=== PATIENT | male | born 1960 | race Caucasian/White ===

== ENCOUNTER 2019-03-01 09:40 | Day surgery (SDC) | payer OTHER ==
[2019-03-01] MEDS ORDERED: fentaNYL 100 MCG/2 ML SDV IVPUSH ONE (09:50)
--- NOTE | 2019-03-01 09:53 | EDM.PDOC ---
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 A makeshift tourniquet is applied above the wound. Clothing is removed, tourniquet removed, and inspection reveals a full thickness laceration involving the quadriceps muscles with some clots and debris visible, and no active bleeding. There are pulses in the lower leg, and CMS is intact. General surgery was called to consult and manage. - Related Data Allergies Allergy/AdvReac Type Severity Reaction Status Date / Time No Known Allergies Allergy Verified 03/01/19 10:23 Home Meds: Home Meds NK [No Known Home Meds] 03/01/19 [History] Past Medical History Respiratory History: Reports: Other (See Below) (pneumonia 14 years ago, hospitalized in [place], [place]) Review of Systems - Review of Systems Review Of Systems: See Below Constitutional: Reports: No Symptoms Eyes: Reports: No Symptoms Ears: Reports: No Symptoms Nose: Reports: No Symptoms Mouth/Throat: Reports: No Symptoms Respiratory: Reports: No Symptoms Cardiovascular: Reports: No Symptoms GI/Abdominal: Reports: No Symptoms Genitourinary: Reports: No Symptoms Musculoskeletal: Reports: Leg Pain (L anterior thigh) Skin: Reports: Wound (deep wound L anteriomedial thigh) Neurological: Reports: No Symptoms Psychiatric: Reports: No Symptoms ED EXAM, GENERAL - Physical Exam Exam: See Below Exam Limited By: No Limitations General Appearance: Alert, WD/WN, Mild Distress Eye Exam: Bilateral Eye: EOMI, Normal Inspection, PERRL Ears: Normal External Exam Nose: Normal Inspection Throat/Mouth: Normal Lips, Normal Voice, Other (numerous teeth missing or caried ) Head: Atraumatic, Normocephalic Neck: Normal Inspection, Supple Respiratory/Chest: No Respiratory Distress, Lungs Clear, Normal Breath Sounds, No Accessory Muscle Use, Chest Non-Tender Cardiovascular: Normal Peripheral Pulses, Regular Rate, Rhythm, No Murmur Peripheral Pulses: 4+: Femoral (L), Popliteal (L), Posterior Tibial (L), Dorsalis Pedis (L) GI/Abdominal: Normal Bowel Sounds, Soft, Non-Tender, No Organomegaly, No Distention, No Mass (Male) Exam: Deferred Rectal (Males) Exam: Deferred Back Exam: Normal Inspection Extremities: Leg Pain (L anterior thigh) Neurological: Alert, Oriented, CN II-XII Intact, Normal Cognition, Normal Reflexes, No Motor/Sensory Deficits Psychiatric: Normal Affect, Normal Mood Skin Exam: Warm, Dry, Wound/Incision (L anterior thigh 20 cm and full thickness involving quadriceps mm) Lymphatic: No Adenopathy Course - Vital Signs Text/Narrative:: Surgical consult with Dr. Hurt, and he was taken to surgery for debridement and repair. Last Recorded V/S: Last Vital Signs Temp 36.3 C 03/01/19 09:50 Pulse 80 03/01/19 09:50 Resp 18 03/01/19 09:50 BP 107/62 03/01/19 09:50 Pulse Ox 100 03/01/19 09:50 - Orders/Labs/Meds Orders: Active Orders 24 hr Category Date Time Status Verify Patient Consent Obtain [RC] ASDIRECTED Care 03/01/19 10:20 Active Nothing Per Oral Diet [DIET] Diet 03/01/19 Breakfast Ordered Lactated Ringers [Ringers, Lactated] 1,000 ml Med 03/01/19 10:30 Ordered IV ASDIRECTED Sodium Chloride 0.9% [Saline Flush] Med 03/01/19 09:50 Active 10 ml FLUSH ASDIRECTED PRN ceFAZolin [Ancef] 2 gm Med 03/01/19 10:20 Ordered Sodium Chloride 0.9% [Normal Saline] 100 ml IV ONETIME Peripheral IV Insertion Adult [OM.PC] Routine Oth 03/01/19 09:50 Ordered Sequential Compression Device [OM.PC] Routine Oth 03/01/19 10:20 Ordered Resuscitation Status Routine Resus Stat 03/01/19 10:20 Ordered Medication Orders Cefazolin Sodium 2 gm/ Sodium (Chloride) 100 mls @ 200 mls/hr IV ONETIME ONE Stop: 03/01/19 10:49 Lactated Ringer's (Ringers, Lactated) 1,000 mls @ 125 mls/hr IV ASDIRECTED SCOT Sodium Chloride (Saline Flush) 10 ml FLUSH ASDIRECTED PRN PRN Reason: Keep Vein Open Last Admin: 03/01/19 09:59 Dose: 10 ml Meds: Medications Generic Name Dose Route Start Last Admin Trade Name Freq PRN Reason Stop Dose Admin Cefazolin Sodium 2 gm/ Sodium 100 mls @ 200 mls/hr 03/01/19 10:20 Chloride IV 03/01/19 10:49 ONETIME ONE Lactated Ringer's 1,000 mls @ 125 mls/hr 03/01/19 10:30 Ringers, Lactated IV ASDIRECTED SCOT Sodium Chloride 10 ml 03/01/19 09:50 03/01/19 09:59 Saline Flush FLUSH 10 ml ASDIRECTED PRN Administration Keep Vein Open Discontinued Medications Generic Name Dose Route Start Last Admin Trade Name Freq PRN Reason Stop Dose Admin Fentanyl 100 mcg 03/01/19 09:50 03/01/19 09:57 Sublimaze IVPUSH 03/01/19 09:51 100 mcg ONETIME ONE Administration Departure - Departure Time of Disposition: 10:27 Disposition: Admitted As Inpatient 65 Condition: Fair Clinical Impression: Laceration of thigh, left, complicated Qualifiers: Encounter type: initial encounter Qualified Code(s): S71.112A - Laceration without foreign body, left thigh, initial encounter - Discharge Information *PRESCRIPTION DRUG MONITORING PROGRAM REVIEWED*: Not Applicable *COPY OF PRESCRIPTION DRUG MONITORING REPORT IN PATIENT DEB: Not Applicable - Problem List & Annotations (1) Laceration of thigh, left, complicated SNOMED Code(s): 90508722 Code(s): S71.112A - LACERATION WITHOUT FOREIGN BODY, LEFT THIGH, INIT ENCNTR Status: Acute Current Visit: Yes Annotation/Comment:: Per general surgery. Qualifiers: Encounter type: initial encounter Qualified Code(s): S71.112A - Laceration without foreign body, left thigh, initial encounter - Problem List Review Problem List Initiated/Reviewed/Updated: Yes - My Orders Last 24 Hours: My Active Orders 03/01/19 09:50 Sodium Chloride 0.9% [Saline Flush] 10 ml FLUSH ASDIRECTED PRN Peripheral IV Insertion Adult [OM.PC] Routine - Assessment/Plan Last 24 Hours: My Active Orders 03/01/19 09:50 Sodium Chloride 0.9% [Saline Flush] 10 ml FLUSH ASDIRECTED PRN Peripheral IV Insertion Adult [OM.PC] Routine Plan: Per General Surgery.
[2019-03-01] MEDS: Sodium Chloride 0.9% 10 ML Syringe FLUSH PRN ×2 (09:59→19:00)
[2019-03-01] MEDS ORDERED: Ondansetron 4 MG/2 ML SDV IVPUSH ONE (10:10)
[2019-03-01] MEDS ORDERED: Citric Acid/Sodium Citrate Solution 30 ML Cup PO ONE (10:10)
[2019-03-01] MEDS ORDERED: Propofol 200 MG/20 ML SDV IV ONE (10:10)
[2019-03-01] MEDS ORDERED: Rocuronium 50 MG/5 ML Vial IV ONE (10:10)
[2019-03-01] MEDS ORDERED: fentaNYL 100 MCG/2 ML SDV IV ONE (10:10)
[2019-03-01] MEDS ORDERED: Succinylcholine 200 MG/10 ML MDV IV ONE (10:10)
[2019-03-01] MEDS ORDERED: Midazolam 1 MG/ML 2 ML SDV IV ONE (10:10)
--- NOTE | 2019-03-01 10:16 | PCM.HP ---
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 He was not wearing any protective clothing. He lost control of the valve grinder and sustained a lac to the left ant thigh. This has gone through the skin and resulted in a lac into the muscle. The wound is in need of washout. Past Medical History Respiratory History: Reports: Other (See Below) (pneumonia 14 years ago, hospitalized in [place], [place]) Social & Family History - Family History Family Medical History: Noncontributory - Tobacco Use Smoking Status *Q: Current Every Day Smoker Years of Tobacco use: 40 Packs/Tins Daily: 1.5 Second Hand Smoke Exposure: Yes - Caffeine Use Caffeine Use: Reports: Coffee - Alcohol Use Days Per Week of Alcohol Use: 7 Number of Drinks Per Day: 6 Total Drinks Per Week: 42 - Recreational Drug Use Recreational Drug Use: No H&P Review of Systems - Review of Systems: Review Of Systems: See Below General: Reports: No Symptoms HEENT: Reports: No Symptoms Pulmonary: Reports: No Symptoms Cardiovascular: Reports: No Symptoms Gastrointestinal: Reports: No Symptoms Musculoskeletal: Reports: Other (wound ) Skin: Reports: Wound Exam - Exam Exam: See Below - Vital Signs Vital Signs: Last Vital Signs Temp 97.4 F 03/01/19 09:50 Pulse 80 03/01/19 09:50 Resp 18 03/01/19 09:50 BP 107/62 03/01/19 09:50 Pulse Ox 100 03/01/19 09:50 - Exam General: Alert, Oriented HEENT: PERRLA, Conjunctiva Clear, EACs Clear, EOMI, Hearing Intact, Mucosa Moist & [place], Pupils Reactive, TMs Clear Lungs: Clear to Auscultation, Normal Respiratory Effort Cardiovascular: Regular Rate, Regular Rhythm Extremities: Other (left ant thigh above the knee. medial anterior aspect. 13 cm in lenght. pt has exposed muscle with contaminent in it ) - Problem List (1) Laceration of thigh, left, complicated SNOMED Code(s): 18758732 ICD Code: S71.112A - LACERATION WITHOUT FOREIGN BODY, LEFT THIGH, INIT ENCNTR Status: Acute Current Visit: Yes Qualifiers: Encounter type: initial encounter Qualified Code(s): S71.112A - Laceration without foreign body, left thigh, initial encounter Problem List Initiated/Reviewed/Updated: Yes Orders Last 24hrs: Active Orders 24 hr Category Date Time Status Sodium Chloride 0.9% [Saline Flush] Med 03/01/19 09:50 Active 10 ml FLUSH ASDIRECTED PRN Peripheral IV Insertion Adult [OM.PC] Routine Oth 03/01/19 09:50 Ordered Medication Orders Sodium Chloride (Saline Flush) 10 ml FLUSH ASDIRECTED PRN PRN Reason: Keep Vein Open Last Admin: 03/01/19 09:59 Dose: 10 ml Assessment/Plan Comment:: Pt will require washout. Procedure and risks explained to the pt to include bleeding, infection. He expressed understanding and asks us to proceed.
[2019-03-01] MEDS ORDERED: ceFAZolin 2 GM in Premix Bag 1 BAG IV ONE (10:30)
[2019-03-01] MEDS ORDERED: Diphtheria,Pertussis(Acell),Tetanus Vaccine 0.5 ML SDV IM ONE (10:32)
[2019-03-01] MEDS: Lactated Ringers 1,000 ML IV SCH ×2 (10:37→12:14)
[2019-03-01] MEDS ORDERED: Morphine 4 MG/ML Syringe IVPUSH PRN (11:32)
[2019-03-01] MEDS ORDERED: Ondansetron 4 MG/2 ML SDV IVPUSH PRN (11:32)
--- NOTE | 2019-03-01 11:43 | PCM.OPNOTE ---
- General Post-Op/Procedure Note Date of Surgery/Procedure: 03/01/19 Operative Procedure(s): wash out and closure of left anterior thigh wound Findings: 23 cm laceration into ant thigh muscle down to femur Pre Op Diagnosis: left thigh laceration Post-Op Diagnosis: same Anesthesia Technique: General ET Tube Primary Surgeon: Pb Hurt Anesthesia Provider: Arabella Condon Pathology: none EBL in mLs: 3 Surgical Drain/Tube Type: Andreas Drain Complications: None Condition: Good Free Text/Narrative:: see dictation
[2019-03-01] MEDS: Ampicillin/Sulbactam Na 3 GM in Sodium Chloride 0.9% 100 ML IV SCH ×3 (12:14→23:03)
--- NOTE | 2019-03-01 12:27 | OR ---
DATE OF OPERATION: 03/01/2019 SURGEON: Pb Hurt MD PROCEDURE PERFORMED: Washout and closure of left anterior thigh wound. PREOPERATIVE DIAGNOSIS: Complicated laceration of the thigh. POSTOPERATIVE DIAGNOSIS: Complicated laceration of the thigh. 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 This was through the skin into the underlying muscle. INTRAOPERATIVE FINDINGS: The laceration through the muscle was full length down to the bone. There was no gross contamination seen. It was washed out. DESCRIPTION OF OPERATION: After an excellent general endotracheal anesthetic was administered, the patient was prepped and draped in the usual sterile manner. The skin and muscle edges were gently retracted and retained blood clot was removed using suction. Several bleeding points were encountered. These were small branch arterials that were controlled with a suture ligature of 3-0 Vicryl or a 2-0 Vicryl tie. We then irrigated the wound with approximately 3 L of normal saline until the muscle and the wound appeared to be clean. The traumatically disrupted skin was excised. A 24-Swedish flat Andreas drain was placed into the wound and brought out through a separate stab incision and sewn into position with a 3-0 Prolene. The anterior fascial defect was closed with a running 0 Vicryl. The skin was stapled shut. Dressing was applied. Needle, sponge, and instrument counts were reported as correct. The patient was taken to Recovery in good condition. He will be watched overnight. Physical Therapy consultation will be obtained. /[id number] /MODL
[2019-03-01] MEDS: Acetaminophen/HYDROcodone 325-5 MG Tab PO PRN ×3 (14:35→23:51)
[2019-03-01] MEDS ORDERED: Nicotine 21 MG/24 Hr Patch TRDERM SCH (17:30)
[2019-03-01] MEDS ORDERED: Sodium Chloride 0.9% 10 ML Syringe FLUSH PRN (17:31)
--- NOTE | 2019-03-01 17:33 | PCM.SN ---
- Free Text/Narrative Note: GABRIELLE drainage noted at 100 ml used crutches without issues will saline lock iv. anticipate dc in am
[2019-03-02] MEDS: Ampicillin/Sulbactam Na 3 GM in Sodium Chloride 0.9% 100 ML IV SCH ×2 (05:57→16:02)
[2019-03-02] MEDS: Acetaminophen/HYDROcodone 325-5 MG Tab PO PRN ×2 (06:17→11:00)
[2019-03-02] MEDS: Sodium Chloride 0.9% 10 ML Syringe FLUSH PRN (07:16)
--- NOTE | 2019-03-02 08:41 | PCM.SURGPN ---
- General Info Date of Service: 03/02/19 POD#: 1 Functional Status: Reports: Pain Controlled, Tolerating Diet, Ambulating - Review of Systems General: Reports: No Symptoms Musculoskeletal: Reports: Leg Pain Skin: Reports: No Symptoms - Patient Data Vitals - Most Recent: Last Vital Signs Temp 97.9 F 03/02/19 08:15 Pulse 63 03/02/19 08:15 Resp 18 03/02/19 08:15 BP 111/79 03/02/19 08:15 Pulse Ox 95 03/02/19 08:15 Weight - Most Recent: 71.809 kg I&O - Last 24 Hours: Intake & Output 03/01/19 03/02/19 03/02/19 22:59 06:59 14:59 Intake Total 545 500 Output Total 50 10 Balance 495 490 Lab Results Last 24 Hrs: Laboratory Results - last 24 hr 03/01/19 03/02/19 Range/Units 12:30 06:09 WBC 7.5 (4.5-12.0) X10-3/uL RBC 4.26 L (4.30-5.75) x10(6)uL Hgb 14.5 (13.5-17.8) g/dL Hct 43.1 (30.0-51.3) % MCV 101.2 H (80-96) fL MCH 34.0 H (27.7-33.6) pg MCHC 33.6 (32.2-35.4) g/dL RDW 13.2 (11.5-15.5) % Plt Count 206 (125-369) X10(3)uL MPV 7.5 (7.4-10.4) fL Neut % (Auto) 64.0 (46-82) % Lymph % (Auto) 24.0 (13-37) % [place] % (Auto) 9.1 (4-12) % Eos % (Auto) 2 (1.0-5.0) % Baso % (Auto) 1 (0-2) % Neut # (Auto) 4.7 (1.6-8.3) # Lymph # (Auto) 1.8 (0.6-5.0) # [place] # (Auto) 0.7 (0.0-1.3) # Eos # (Auto) 0.2 (0.0-0.8) # Baso # (Auto) 0.1 (0.0-0.2) # Creatinine 1.1 (0.70-1.30) mg/dL Est Cr Clr Drug Dosing TNP Estimated GFR (MDRD) > 60 (>60) Med Orders - Current: Current Medications Hydrocodone Bitart/Acetaminophen ([place]ath 325-5 Mg) 2 tab PO Q4H PRN PRN Reason: Pain (moderate 4-6) Last Admin: 03/02/19 06:17 Dose: 2 tab Ampicillin Sodium/Sulbactam (Sodium 3 gm/ Sodium Chloride) 100 mls @ 100 mls/ hr IV Q6H SCOT Last Admin: 03/02/19 05:57 Dose: 100 mls/hr Morphine Sulfate (Morphine Sulfate) 4 mg IVPUSH Q4H PRN PRN Reason: PAIN (SEVERE 7-10) Last Admin: 03/01/19 12:40 Dose: 4 mg Nicotine (Habitrol) 21 mg TRDERM DAILY@1800 SCOT Ondansetron HCl (Zofran) 4 mg IVPUSH Q6H PRN PRN Reason: Nausea/Vomiting Sodium Chloride (Saline Flush) 10 ml FLUSH ASDIRECTED PRN PRN Reason: Keep Vein Open Last Admin: 03/02/19 07:16 Dose: 10 ml Discontinued Medications Diphtheria/Tetanus/Acell Pertussis (Adacel) 0.5 ml IM .ONCE ONE Stop: 03/01/19 10:33 Last Admin: 03/01/19 10:39 Dose: 0.5 ml Fentanyl (Sublimaze) 100 mcg IVPUSH ONETIME ONE Stop: 03/01/19 09:51 Last Admin: 03/01/19 09:57 Dose: 100 mcg Cefazolin Sodium/Dextrose 2 gm (/ Premix) 50 mls @ 100 mls/hr IV ONETIME ONE Stop: 03/01/19 10:59 Last Admin: 03/01/19 10:37 Dose: 100 mls/hr Lactated Ringer's (Ringers, Lactated) 1,000 mls @ 125 mls/hr IV ASDIRECTED SCOT Last Admin: 03/01/19 12:14 Dose: 125 mls/hr Morphine Sulfate (Morphine) 4 mg IVPUSH Q4H PRN PRN Reason: Pain (severe 7-10) Nicotine (Habitrol) 21 mg TRDERM DAILY SCOT Last Admin: 03/01/19 17:55 Dose: Not Given Sodium Chloride (Saline Flush) 10 ml FLUSH ASDIRECTED PRN PRN Reason: Keep Vein Open - Exam Wound/Incisions: Healing Well, Dressing Dry and Intact, Drainage (jesus drainage has dropped off ). No: Erythema General: Alert, Oriented Lungs: Clear to Auscultation, Normal Respiratory Effort Cardiovascular: Regular Rate, Regular Rhythm Skin: Warm, Dry - Problem List & Annotations (1) Laceration of thigh, left, complicated SNOMED Code(s): 26324456 Code(s): S71.112A - LACERATION WITHOUT FOREIGN BODY, LEFT THIGH, INIT ENCNTR Status: Acute Current Visit: Yes Annotation/Comment:: Per general surgery. Qualifiers: Encounter type: initial encounter Qualified Code(s): S71.112A - Laceration without foreign body, left thigh, initial encounter - Problem List Review Problem List Initiated/Reviewed/Updated: Yes - My Orders Last 24 Hours: Active Orders 24 hr Category Date Time Status Patient Status [ADT] Routine ADT 03/01/19 11:32 Active Oxygen Therapy [RC] .PRN Care 03/01/19 11:32 Active RT Incentive Spirometry [RC] Q2HWA Care 03/01/19 11:32 Active Up With Assistance [RC] ASDIRECTED Care 03/01/19 11:32 Active Vaccines to be Administered [RC] PER UNIT ROUTINE Care 03/01/19 10:32 Active Vital Signs [RC] 00,04,08,12,16,20 Care 03/01/19 11:32 Active PT Evaluation and Treatment [CONS] Routine Cons 03/01/19 11:32 Active Regular Diet [DIET] Diet 03/01/19 Lunch Ordered Acetaminophen/HYDROcodone [Bath 325-5 MG] Med 03/01/19 11:32 Active 2 tab PO Q4H PRN Ampicillin/Sulbactam Na [Unasyn] 3 gm Med 03/01/19 12:00 Active Sodium Chloride 0.9% [Normal Saline] 100 ml IV Q6H Morphine Sulfate Med 03/01/19 12:25 Active 4 mg IVPUSH Q4H PRN Nicotine [Habitrol] Med 03/02/19 18:00 Active 21 mg TRDERM DAILY@1800 Ondansetron [Zofran] Med 03/01/19 11:32 Active 4 mg IVPUSH Q6H PRN Sodium Chloride 0.9% [Saline Flush] Med 03/01/19 09:50 Active 10 ml FLUSH ASDIRECTED PRN Peripheral IV Insertion Adult [OM.PC] Routine Oth 03/01/19 09:50 Ordered Saline Lock Insert [OM.PC] Routine Oth 03/01/19 17:31 Ordered Sequential Compression Device [OM.PC] Routine Oth 03/01/19 10:20 Ordered Resuscitation Status Routine Resus Stat 03/01/19 10:20 Ordered Medication Orders Hydrocodone Bitart/Acetaminophen ([place] 325-5 Mg) 2 tab PO Q4H PRN PRN Reason: Pain (moderate 4-6) Last Admin: 03/02/19 06:17 Dose: 2 tab Admin: 03/01/19 23:51 Dose: 2 tab Admin: 03/01/19 18:44 Dose: 2 tab Admin: 03/01/19 14:35 Dose: 2 tab Ampicillin Sodium/Sulbactam (Sodium 3 gm/ Sodium Chloride) 100 mls @ 100 mls/ hr IV Q6H SCOT Last Admin: 03/02/19 05:57 Dose: 100 mls/hr Admin: 03/01/19 23:03 Dose: 100 mls/hr Admin: 03/01/19 17:58 Dose: 100 mls/hr Admin: 03/01/19 12:14 Dose: 100 mls/hr Morphine Sulfate (Morphine Sulfate) 4 mg IVPUSH Q4H PRN PRN Reason: PAIN (SEVERE 7-10) Last Admin: 03/01/19 12:40 Dose: 4 mg Nicotine (Habitrol) 21 mg TRDERM DAILY@1800 SCOT Ondansetron HCl (Zofran) 4 mg IVPUSH Q6H PRN PRN Reason: Nausea/Vomiting Sodium Chloride (Saline Flush) 10 ml FLUSH ASDIRECTED PRN PRN Reason: Keep Vein Open Last Admin: 03/02/19 07:16 Dose: 10 ml Admin: 03/01/19 19:00 Dose: 10 ml Admin: 03/01/19 09:59 Dose: 10 ml - Assessment Assessment (Free Text/Narrative):: unremarkable post op exam - Plan Plan (Free Text/Narrative):: will discharge to home.
[2019-03-02] MEDS ORDERED: Nicotine 21 MG/24 Hr Patch TRDERM SCH (18:00)
== END 2019-03-02 11:35 | disposition home or self-care (01) ==
LOC: FB.ED 09:40 → FB.SDS 10:09 → FB.MS 11:34 → FB.SDS 03-02 11:35
PROVIDERS: ATTEND Surgery
DX: S76.122A Laceration of left quadriceps muscle, fascia and tendon, initial encounter (principal); F17.200 Nicotine dependence, unspecified, uncomplicated; W31.89XA Contact with other specified machinery, initial encounter
CPT/HCPCS: 36415; 82565; 85025; 90715; 94150; 96374; 97116-GP; 97161-GP; 99284-25; A9270-GY; G0010; J0295; J0330; J0690; J2250; J2270; J2405; J2704; J3010; J3490; J7030; J7120